=== PATIENT | female | born 1990 | race Hispanic/Latino ===

== ENCOUNTER 2022-09-20 13:01 | Outpatient (CLI) | payer BC ==
[2022-09-20] MEDS ORDERED: Magnevist 469MG/ML 20 ML VIAL ONE (13:49)
== END 2022-09-20 13:02 | disposition home or self-care (01) ==
LOC: CSHMRI 13:01
PROVIDERS: ATTEND Ophthalmology
DX: H34.231 Retinal artery branch occlusion, right eye (principal)
CPT/HCPCS: 70544; 70549